=== PATIENT | female | born 1960 | race Caucasian/White ===

== ENCOUNTER 2019-10-04 17:32 | Emergency (ER) | payer MEDICAID ==
[~2019-10-04] VITALS: Ht 167.6 cm; Wt 145.1 kg
[2019-10-04 17:35] VITALS: BP_SYST 138
--- NOTE | 2019-10-04 17:35 | NUR ---
Patient to ER bed H2 to gown for evaluation. Side rails up.
--- NOTE | 2019-10-04 17:37 | NUR ---
Patient brought in by ambulance in the ED c/o hematoma on the forehead and chest pain that started today post mechanical fall. Patient came from [facility]. Denied any nausea, vomiting or diarrhea. Patient is a&o x1, respirations even and unlabored, speaking in full sentences, ambulating with a steady gait. VSS, pain level 4/10. Informed of wait time. Instructed to notify ED staff for any changes in condition or worsening of symptoms. Patient verbalized understanding.
--- NOTE | 2019-10-04 17:40 | NUR ---
ECG done at bedside as ordered by Dr. Pierre. Patient tolerated the procedure well.
--- NOTE | 2019-10-04 18:16 | NUR ---
ER Dr. Pierre at bedside examining patient.
[2019-10-04] MEDS ORDERED: ASPIRIN 81 MG TAB.CHEW PO ONE (18:45)
--- NOTE | 2019-10-04 18:55 | NUR ---
dental tech done at bedside collecting blood specimen.
--- NOTE | 2019-10-04 19:10 | NUR ---
Patient taken to CT as ordered by Dr. Pierre, in stable condition.
--- NOTE | 2019-10-04 19:39 | NUR ---
Report given and care transferred to SHIVA Nielsen.
[2019-10-04 19:42] LABS: BASOPHILS % (AUTO) 0.7 % (0.0-2.0); EOSINOPHILS # (AUTO) 0.1 K/uL (0.0-0.4); EOSINOPHILS % (AUTO) 1.6 % (0.0-4.0); HEMATOCRIT 38.6 % (36-48); HEMOGLOBIN 12.8 g/dL (12.0-16.0); LYMPHOCYTES # (AUTO) 1.6 K/uL (1.0-5.5); LYMPHOCYTES % (AUTO) 31.6 % (20.5-51.5); MEAN CORPUSCULAR HEMOGLOBIN 31 pg (27-31); MEAN CORPUSCULAR HGB CONC 33 % (32-36); MEAN CORPUSCULAR VOLUME 92 fL (79.0-98.0); MONOCYTES # (AUTO) 0.4 K/uL (0.0-1.0); MONOCYTES % (AUTO) 7.4 % (1.7-9.3); NEUTROPHILS % (AUTO) 58.7 % (40.0-70.0); PLATELET COUNT (AUTO) 265 K/uL (130-430); RED BLOOD CELL COUNT(AUTO) 4.18 MIL/uL (4.2-6.2); RED CELL DISTRIBUTION WIDTH 14.5 % (9.0-15.0); WHITE BLOOD COUNT (AUTO) 5.2 K/uL (4.8-10.8)
[2019-10-04 20:09] LABS: CALCIUM 8.2 mg/dL (8.4-11.0); CREATININE 0.52 mg/dL (0.55-1.30)
[2019-10-04 20:14] LABS: ALBUMIN 3.1 g/dL (3.4-4.8); TOTAL BILIRUBIN 0.2 mg/dL (0.0-1.0)
--- NOTE | 2019-10-04 20:30 | NUR ---
Pt stated she has a headache. informed.
[2019-10-04] MEDS ORDERED: ACETAMINOPHEN 500 MG TABLET PO ONE (21:45)
--- NOTE | 2019-10-04 21:45 | NUR ---
Pt Resting in ED bed, no acute distress noted
--- NOTE | 2019-10-04 22:30 | NUR ---
Pt resting with sitter bedside
[2019-10-04 23:40] VITALS: BP_SYST 136
--- NOTE | 2019-10-04 23:40 | NUR ---
Patient given written and verbal discharge instructions and verbalizes understanding. ER MD discussed with patient the results and treatment provided. Patient in stable condition. ID arm band removed. No IV Catheter No RX given. Patient educated on pain management and to follow up with PMD. Pain Scale 0/10. Opportunity for questions provided and answered.
--- NOTE | 2019-10-04 23:40 | NUR ---
Ambulance crew on scene for transport
== END 2019-10-04 23:40 | disposition home or self-care (01) ==
LOC: SED 17:32
DX: S09.8XXA Other specified injuries of head, initial encounter (principal); C85.90 Non-Hodgkin lymphoma, unspecified, unspecified site; L93.0 Discoid lupus erythematosus; Z88.0 Allergy status to penicillin; Z91.041 Radiographic dye allergy status; W06.XXXA Fall from bed, initial encounter; Y93.89 Activity, other specified; Y92.89 Other specified places as the place of occurrence of the external cause; Y99.8 Other external cause status
CPT/HCPCS: 36415; 70450-TC; 71045; 80053; 82550-TC; 83880; 84484; 85025; 93005; 99284

== ENCOUNTER 2020-07-02 15:26 | Emergency (ER) | payer MEDICAID ==
[~2020-07-02] VITALS: Ht 157.5 cm; Wt 56.2 kg
[2020-07-02 15:32] VITALS: BP_SYST 113
--- NOTE | 2020-07-02 15:33 | NUR ---
Placed in room 01 . Placed on radiographer cardiac catheterization, blood pressure machine and pulse oximeter. To gown for exam. Side rails up. Report given to SHIVA Fernandez Patient from [facility] currently on 5150 for danger to self. Patient placed on suicide precautions. Patient placed in room within close proximity to nurses' station for closer observation and monitoring. Patient arrived in hospital gown. Metal detector wand used to further screen patient of any potential hazardous belongings.
--- NOTE | 2020-07-02 15:43 | NUR ---
xray at bedside for chest xray
[2020-07-02] MEDS ORDERED: MORPHINE 4 MG/ML INJ. SYRINGE IVP ONE (15:45)
--- NOTE | 2020-07-02 15:51 | NUR ---
CATY Johnson at bedside examining patient.
--- NOTE | 2020-07-02 16:10 | NUR ---
ANXIOUS, ALERT, RESP UNLABORED, SKIN WARM AND DRY. COMMUNICATES CLEARLY IN FULL COMPLETE SENTENCES.
[2020-07-02 16:11] LABS: BASOPHILS % (AUTO) 1.1 % (0.0-2.0); EOSINOPHILS # (AUTO) 0.1 K/uL (0.0-0.4); EOSINOPHILS % (AUTO) 1.8 % (0.0-4.0); HEMATOCRIT 41.8 % (36-48); HEMOGLOBIN 14.3 g/dL (12.0-16.0); LYMPHOCYTES # (AUTO) 1.4 K/uL (1.0-5.5); MEAN CORPUSCULAR HEMOGLOBIN 31 pg (27-31); MEAN CORPUSCULAR HGB CONC 34 % (32-36); MEAN CORPUSCULAR VOLUME 90 fL (79.0-98.0); MONOCYTES # (AUTO) 0.3 K/uL (0.0-1.0); MONOCYTES % (AUTO) 6.2 % (1.7-9.3); NEUTROPHILS # (AUTO) 2.8 K/uL (1.8-7.7); NEUTROPHILS % (AUTO) 59.9 % (40.0-70.0); PLATELET COUNT (AUTO) 261 K/uL (130-430); RED BLOOD CELL COUNT(AUTO) 4.66 MIL/uL (4.2-6.2); RED CELL DISTRIBUTION WIDTH 14.2 % (9.0-15.0); WHITE BLOOD COUNT (AUTO) 4.6 K/uL (4.8-10.8)
[2020-07-02 16:28] LABS: ANION GAP 7 (5-15); CALCIUM 8.8 mg/dL (8.4-11.0); CHLORIDE 100 mmol/L (98-107); CREATININE 0.87 mg/dL (0.55-1.30); GLUCOSE 114 mg/dL (70-99); POTASSIUM 3.6 mmol/L (3.5-5.1); SODIUM SERUM 134 mmol/L (136-145); UREA NITROGEN, BLOOD 14 mg/dL (8-21)
--- NOTE | 2020-07-02 16:30 | NUR ---
SITTER AT BEDSIDE
[2020-07-02 16:36] LABS: ALANINE AMINOTRANSFERASE 14 U/L (12-78); ALBUMIN 3.1 g/dL (3.4-4.8); ASPARTATE AMINOTRANSFERASE 15 U/L (10-37); TOTAL BILIRUBIN 0.5 mg/dL (0.0-1.0)
[2020-07-02 16:42] LABS: GFR AFRICAN AMERICAN 85 mL/min (>90)
[2020-07-02] MEDS ORDERED: LORazepam 1 MG TABLET PO ONE (16:45)
[2020-07-02 18:00] VITALS: BP_SYST 124
--- NOTE | 2020-07-02 18:02 | NUR ---
Patient given written and verbal discharge instructions and verbalizes understanding. ER MD discussed with patient the results and treatment provided. Patient in stable condition. ID arm band removed. Patient educated on pain management and to follow up with PMD. Pain Scale 0/10 Opportunity for questions provided and answered. Medication side effect fact sheet provided. SBAR REPORT TO RN ON [facility] AT [facility]
== END 2020-07-02 18:00 | disposition home or self-care (01) ==
LOC: SED 15:26
DX: F41.9 Anxiety disorder, unspecified (principal); R07.89 Other chest pain; I25.2 Old myocardial infarction; Z88.0 Allergy status to penicillin; Z88.8 Allergy status to other drugs, medicaments and biological substances
CPT/HCPCS: 36415; 71045; 80053; 83880; 84484; 85025; 93005; 96374; 99285; J2270